=== PATIENT | female | born 1950 | race Caucasian/White ===

== ENCOUNTER → 2020-09-05 12:19 | Outpatient (CLI) | payer MEDICARE, SELFPAY ==
--- NOTE | ~2020-09-05 | MM_ITS ---
EXAMINATION: MM screening wendy BI w bin HISTORY: Screening TECHNIQUE: Craniocaudal and mediolateral oblique 3-D tomosynthesis images were obtained and synthetic 2-D images were generated. CAD analysis was submitted and interpreted. COMPARISON: 12/27/2018 BREAST PARENCHYMAL COMPOSITION: There are scattered areas of fibroglandular density. FINDINGS: There is no evidence of suspicious mass, calcification, or architectural distortion to sugg est malignancy in either breast. There has been no suspicious interval change. IMPRESSION: 1. No mammographic evidence of malignancy. 2. Recommend routine screening mammography in one year. BI-RADS Category 1: Negative Reviewed, dictated and finalized at location A. ICIAN SCRIBE
== END ==
PROVIDERS: PCP Internal Medicine; Visit Provider Internal Medicine
DX: Z12.31 Encounter for screening mammogram for malignant neoplasm of breast (principal)
CPT/HCPCS: 77063; 77067

== ENCOUNTER 2021-08-06 10:54 | Outpatient (CLI) | payer MEDICARE, SELFPAY ==
--- NOTE | ~2021-08-06 | US_ITS ---
EXAMINATION: US venous doppler LE RT DATE: 08/06/2021 11:28 INDICATION: Right lower limb pain. Lump at the right calf. TECHNIQUE: Grayscale ultrasound images without and with compression and Doppler ultrasound images of the right lower extremity veins were obtained. COMPARISON: None. FINDINGS: The visualized portions of right common femoral vein, profunda (deep) femoral vein, femoral vein, pop liteal vein, peroneal trunk, posterior tibial veins, peroneal veins, gastrocnemius vein and greater s aphenous vein outflow are patent. 4.6 x 2.6 x 1.1 cm anechoic Kent cyst at the right popliteal fossa . At the region of the palpable abnormality there is a thrombosed subcutaneous varicose vein measurin g up to 6.5 mm in maximal diameter with no internal flow on color Doppler. IMPRESSION: 1. No deep venous thrombosis in the right lower limb. 2. Thrombosed subcutaneous varicose vein which corresponds to the palpable abnormality of concern. 3. Small Kent's cyst. Reviewed, dictated and finalized at location A. 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 No deep venous thrombosis in the right lower limb. 2. Thrombosed subcutaneous varicose vein which corresponds to the palpable abno rmality of concern. 3. Small Kent's cyst.
== END 2021-08-06 10:55 | disposition home or self-care (01) ==
LOC: ANHIMG 11:00
PROVIDERS: PCP Internal Medicine; Visit Provider Internal Medicine
DX: M71.21 Synovial cyst of popliteal space [Baker], right knee (principal); I82.491 Acute embolism and thrombosis of other specified deep vein of right lower extremity
CPT/HCPCS: 93971

== ENCOUNTER 2022-06-02 12:39 | Emergency (ER) | payer MEDICARE, SELFPAY ==
--- NOTE | ~2022-06-02 | XR_ITS ---
EXAMINATION: XR skull <4V DATE: 06/02/2022 13:12 INDICATION: Head injury. TECHNIQUE: 2 views of the skull were obtained. COMPARISON: None. FINDINGS: There is rightward deviation of the nasal septum. No fracture. IMPRESSION: 1. No fracture. Reviewed, dictated and finalized at location A. IMPRESSION: 1. No fracture.
[2022-06-02 12:48] VITALS: BP 149/84; PULSE 89; RESP 14; TEMP 36.9; O2SAT 99
--- NOTE | 2022-06-02 12:54 | ED.HEATRA ---
HPI - Head Injury General Chief complaint: Head Injury Stated complaint: head injury, lt eye pain Time Seen by Provider: 06/02/22 12:54 Mode of arrival: ambulatory Limitations: no limitations History of Present Illness HPI Narrative: 72 year old female presents with concern for head pain after a fall three weeks ago. She fell into a wall, causing the wall to break. She denies loss of consciousness at that time. Reports she had pain behind her left ear and left eye pain and pressure. She reports the left eye pain is still present. She reports the pain behind her ear improved, however 2 days ago when she was blowing bubbles she had sudden pain in that same area. She reports since then she has had a dull ache that gets worse when she bends down. She denies any syncope, near syncope, dizziness, weakness in any extremity, vomiting, vision changes. MD Complaint: fall Related Data Home Medications Medication Instructions Recorded Confirmed No Home Medications 06/02/22 06/02/22 Allergies Allergy/AdvReac Type Severity Reaction Status Date / Time Sulfa (Sulfonamide Allergy Unknown Unknown Verified 06/02/22 12:45 Antibiotics) cephalexin [From Keflex] AdvReac Nausea Verified 06/02/22 12:45 Review of Systems Review of Systems: CONSTITUTIONAL: Denies malaise, chills, sweats, or fever. EYES: Denies visual changes. Reports left eye pain GASTROINTESTINAL: Denies vomiting SKIN: Denies abrasions, lacerations MUSCULOSKELETAL: Denies neck pain NEUROLOGIC: Denies numbness, weakness. Reports left posterior headache. All systems reviewed & are unremarkable except as noted in HPI and below PMFSH Comments At time of signature, agree with nursing past medical, surgical, social and family history. There is no relevant family history pertinent to the presenting complaint Exam Narrative: GENERAL: Well-appearing, well-nourished, and in no acute distress. HEAD: Normocephalic, atraumatic. EYES: PERRLA, sclera clear, and EOMI. No nystagmus. ENT: Nares clear. Mucous membranes moist. NECK: Supple. CHEST: No respiratory distress. Speaks in full sentences. HEART: Regular rate and rhythm. EXTREMITIES: Normal range of motion. No edema. Normal strength and sensation. SKIN: Warm, dry, no visible rash. No bruising, hu sign, raccoon sign, lacerations, abrasions noted. NEURO: Alert and oriented x3. No focal deficits. Cranial nerves II through XII grossly intact PSYCH: Normal mood and affect Course Course Emergency Course: Consulted with the patient's primary care physician Dr. Hong regarding further evaluation of this patient's symptoms. He suggested she be seen in the emergency room. Patient is agreeable to this plan of care. Patient agrees to proceed directly to the emergency department. Portions of this record may have been created with voice recognition software Level of Care: Express Care Visit Vital Signs Vital signs: Vital Signs Temperature 98.5 F 06/02/22 12:48 Pulse Rate 89 06/02/22 12:48 Respiratory Rate 14 06/02/22 12:48 Blood Pressure 149/84 H 06/02/22 12:48 Pulse Oximetry 99 06/02/22 12:48 Oxygen Delivery Room Air 06/02/22 12:48 Temperature 98.5 F 06/02/22 12:48 Pulse Rate 89 06/02/22 12:48 Respiratory Rate 14 06/02/22 12:48 Blood Pressure 149/84 H 06/02/22 12:48 Pulse Oximetry 99 06/02/22 12:48 Oxygen Delivery Room Air 06/02/22 12:48 Reviewed. Transfer Transfered to: [facility] Transportation: Other (Private vehicle) Transfer rationale: Headache Accepting physician: Hitesh Pinzon MDM - Head Injury MDM Narrative Medical decision making narrative: Patient's symptoms warrant further evaluation emergency department; patient is non-toxic appearing and is in no distress. Patient is stable for transfer via private vehicle Critical Care Time Critical Care Time Critical Care Time: No Discharge Plan Discharge Clinical Impression: Headache Patient Dispos
== END 2022-06-02 13:29 | disposition short-term general hospital (02) ==
PROVIDERS: Emergency Provider Nurse Practitioner; PCP Internal Medicine
DX: R51.9 Headache, unspecified (principal)
CPT/HCPCS: 70250; 99212; G0463

== ENCOUNTER 2022-06-02 13:42 | Emergency (ER) | payer MEDICARE, SELFPAY ==
--- NOTE | ~2022-06-02 | CT_ITS ---
EXAMINATION: CT cervical spine wo con DATE: 06/02/2022 17:19 INDICATION: Head injury TECHNIQUE: Computed tomography (CT) of the cervical spine was performed without intravenous contrast. The dose-length product (DLP) was 349.40 mGy-cm. Automated exposure control and iterative reconstruc tion technique were employed. COMPARISON: None FINDINGS: There is reversal of normal cervical lordosis. There are 2 mm of anterolisthesis of C4 on C 5. The vertebral body heights are maintained. The odontoid is intact. There is no fracture. There is moderate to severe loss of intervertebral disc space height at C4-5, C5-6, and C6-7. The prevertebral soft tissues are normal. Small degenerative osteophytes project from the anterior endplates of multi ple vertebral bodies. There is moderate multilevel facet and uncovertebral joint osteoarthritis. IMPRESSION: 1. Severe cervical spondylosis without acute findings. Reviewed, dictated and finalized at location A.
--- NOTE | ~2022-06-02 | CT_ITS ---
EXAMINATION: CT brain wo con INDICATION: Head injury COMPARISON: None TECHNIQUE: Standard unenhanced head CT. The dose-length product (DLP) was 605.33 mGy-cm. The mA was a djusted according to patient size. Iterative reconstruction technique was employed. FINDINGS: There is no acute intraparenchymal hemorrhage. No evidence of mass lesion. No evidence of a cute infarction. There is mild periventricular and subcortical hypodensity probably related to small vessel ischemic disease. There is mild prominence of the sulci and ventricles related to cerebral atr ophy. Intracranial calcified cerebral atherosclerosis is noted. There are no extra-axial collections. There is no mass effect or midline shift. The orbits and soft tissues are unremarkable. There is mil d mucosal thickening of the paranasal sinuses. IMPRESSION: 1. No acute intracranial abnormality. 2. Age related findings. Reviewed, dictated and finalized at location A.
[2022-06-02 13:52] VITALS: BP 137/78; PULSE 89; RESP 18; TEMP 36.6; O2SAT 97
--- NOTE | 2022-06-02 17:28 | ED.HEATRA ---
HPI - Head Injury General Chief complaint: Head Injury Stated complaint: [place] SINCE FALL 26SEPT[address]BER NEEDS CT SCAN Time Seen by Provider: 06/02/22 16:52 History of Present Illness HPI Narrative: Patient is a 72-year-old female here for evaluation of a posterior headache since a fall 16 days ago. Patient states that she was visiting her son, stepped up on a step in the middle of the night, when she lost her balance, fell backwards, striking her posterior head against a wall. She denies loss of consciousness. Since then, she has been experiencing a mild, intermittent headache that is focal around her left orbit. Headache has been better with Aleve. No anticoagulation. She denies any changes to her vision, nausea, vomiting, seizures, confusion. States that she tried to make an appoint with her primary care provider but cannot get in until July. Patient was blowing bubbles with her granddaughter 3 days ago, noticed that when she was pulling bubbles she developed a new, posterior headache on the left side where she struck her head. She was seen at an urgent care facility today who transferred her here for head imaging. Related Data Home Medications Medication Instructions Recorded Confirmed No Home Medications 06/02/22 06/02/22 Allergies Allergy/AdvReac Type Severity Reaction Status Date / Time Sulfa (Sulfonamide Allergy Unknown Unknown Verified 06/02/22 12:45 Antibiotics) cephalexin [From Keflex] AdvReac Nausea Verified 06/02/22 12:45 Review of Systems Review of Systems: Gen.: Denies fevers or chills Eyes: Reports pain around left eye. Denies visual change ENT: Denies congestion Respiratory: Denies shortness of breath or cough CV: Denies chest pain or palpitations GI: Denies abdominal pain nausea, emesis or diarrhea denies burning, urgency, frequency or hematuria Musculoskeletal: Denies back pain or muscle pain Neuro: Reports posterior headache. Denies numbness, tingling, weakness or focal weakness Skin: Denies rash Except as documented, all other systems reviewed and negative Exam Narrative: APPEARANCE: Well appearing, no pain in distress, well-nourished. Head: Normocephalic and atraumatic. EYES: PERRLA/EOMI, conjunctivae clear NOSE: No nasal drainage EARS: External ear normal in appearance THROAT: Oropharynx is clear. Mucous membranes are moist. NECK: Supple. No adenopathy, no masses. RESPIRATORY: Airway patent, respirations nonlabored. Clear to auscultation bilaterally, no rales, rhonchi, wheezing. CARDIOVASCULAR: Regular rate and rhythm without murmurs, rubs, or gallops. ABDOMINAL: Normoactive bowel sounds. Soft, nontender, nondistended. No rebound tenderness or guarding. MUSCULOSKELETAL: Extremities are warm and well-perfused. Moves all extremities well. No edema. NEURO: Cranial nerves II through XII intact. [id number] normal. Normal speech. SKIN: Skin is warm and dry. No rashes. PSYCHIATRIC: Normal affect/mood. Course Vital Signs Vital signs: Vital Signs Temperature 98 F 06/02/22 13:52 Pulse Rate 89 06/02/22 13:52 Respiratory Rate 18 06/02/22 13:52 Blood Pressure 137/78 06/02/22 13:52 Pulse Oximetry 97 06/02/22 13:52 Oxygen Delivery Room Air 06/02/22 13:52 Temperature 98 F 06/02/22 13:52 Pulse Rate 81 06/02/22 17:29 Respiratory Rate 16 06/02/22 17:29 Blood Pressure 152/79 H 06/02/22 17:29 Pulse Oximetry 100 06/02/22 17:29 Oxygen Delivery Room Air 06/02/22 17:29 MDM - Head Injury MDM Narrative Medical decision making narrative: 72-year-old female here for evaluation of headaches specifically around her left eye and posterior head after a fall with head injury that sounds mechanical in nature about 10 days ago; sent from urgent care for head imaging. Patient is nontoxic-appearing and has normal vital signs, her neurologic exam is reassuring. Her head CT and C-spine CT show spondylosis and age-related findings, but nothing acute. Visual a
[2022-06-02 17:29] VITALS: BP 152/79; PULSE 81; RESP 16; O2SAT 100
== END 2022-06-02 18:15 | disposition home or self-care (01) ==
PROVIDERS: Emergency Provider Emergency Medicine; PCP Internal Medicine
DX: R51.9 Headache, unspecified (principal)
CPT/HCPCS: 70250; 70450; 72125; 99284

== ENCOUNTER → 2022-09-01 15:00 | Outpatient (CLI) | payer MEDICARE, SELFPAY ==
--- NOTE | ~2022-09-01 | MM_ITS ---
EXAMINATION: MM screening wendy BI w bin HISTORY: Screening mammogram TECHNIQUE: Craniocaudal and mediolateral oblique 3-D tomosynthesis images were obtained and synthetic 2-D images were generated. CAD analysis was submitted and interpreted. COMPARISON: 09/05/2020, 12/27/2018 bilateral screening mammogram examinations BREAST PARENCHYMAL COMPOSITION: There are scattered areas of fibroglandular density. FINDINGS: There is no evidence of suspicious mass, calcification, or architectural distortion to sugg est malignancy in either breast. There has been no suspicious interval change. IMPRESSION: 1. No mammographic evidence of malignancy. 2. Recommend routine screening mammography in one year. BI-RADS Category 1: Negative Reviewed, dictated and finalized at location A. 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
== END ==
PROVIDERS: PCP Internal Medicine; Visit Provider Internal Medicine
DX: Z12.31 Encounter for screening mammogram for malignant neoplasm of breast (principal)
CPT/HCPCS: 77063; 77067